=== PATIENT | female | born 1955 | race Caucasian/White ===

== ENCOUNTER 2024-01-30 08:46 | Day surgery (SDC) | payer OTHER ==
[~2024-01-30] VITALS: Ht 152.4 cm; Wt 77.5 kg
[~2024-01-30 08:46] MED LIST: Balanced Salt Epinephrine Irrigation Solution 500 mL IR SCH; FURO40 PO; IBUP800 PO; LEVSOD112 PO; LISI20 PO; Lidocaine HCl/Pf 1% 5 ML VIAL XX SCH; METO25ER PO; Moxifloxacin HCL 0.5 MG/0.1 ML 0.4MLSYR LEFTEYE SCH; NS 500 ML IV ONE; Povidone-Iodine 450 DROP/30 ML Solution LEFTEYE SCH; Povidone-Iodine 450 DROP/30 ML Solution ONE; Tetracaine HCl/Pf 0.5% Opth Soln 4 ml ONE; Triamcinolone Inj Susp 40 MG / ML 1ML Vial INJ SCH; Triamcinolone Inj Susp 40 MG / ML 1ML Vial ONE
[2024-01-30] MEDS ORDERED: FentaNYL Citrate 50 MCG/ML 2 ML Injection ONE (08:53)
[2024-01-30] MEDS ORDERED: Midazolam HCl 1MG / ML 2ML Vial ONE (08:54)
[2024-01-30] MEDS ORDERED: NS 1,000 ML IV ONE (09:30)
[2024-01-30 10:48] VITALS: BP 203/63
--- NOTE | 2024-01-30 10:50 | NUR ---
01/30/24 1050 SONIA DUMONT BP WAS ELEVATED AFTER OR SECOND BP AND SEVERAL RECHECKS DESPITE ADJUSTING CUFF. DR WEBB OK'D PT DC AFTER EXPLAINING RISK OF HTN THAT HIGH. PT REFUSED ANY MEDS STATING THAT HER BP DOES THAT IN ENVIRONMENTS LIKE THIS. PT STATES SHE FEELS GOOD. PT WILL F/U AT DR VANEGAS OFFICE TODAY.
== END 2024-01-30 10:39 | disposition home or self-care (01) ==
LOC: ORSCSDS 08:46
PROVIDERS: Ophthalmology
PROC: 08RK3JZ Replacement of Left Lens with Synthetic Substitute, Percutaneous Approach (ICD-10-PCS; principal; 2024-01-30 10:00)
DX: H25.812 Combined forms of age-related cataract, left eye (principal); Z96.1 Presence of intraocular lens; I10 Essential (primary) hypertension; Z79.899 Other long term (current) drug therapy
CPT/HCPCS: J2250; J3010; J3301; J7040; V2632

== ENCOUNTER → 2024-09-16 | Outpatient (CLI) | payer OTHER | END | disposition home or self-care (01) | LOC: LAB 15:18 → LAB SHORT 15:18 | DX: K62.5 Hemorrhage of anus and rectum (principal); E03.9 Hypothyroidism, unspecified; R19.5 Other fecal abnormalities ==